=== PATIENT | male | born 1960 | race American Indian/Alaskan Native ===

== ENCOUNTER 2017-05-15 10:06 | Outpatient (CLI) | payer OTHER ==
--- NOTE | 2017-05-15 11:13 | XRay Report ---
XRAY RIGHT KNEE 2 THREE VIEWS: 05/15/17 10:06:00 CLINICAL: Pain. FINDINGS: Mild osteopenia. No fracture or dislocation. The medial and lateral joint spaces are normal. Mild patellofemoral joint arthritis. No joint effusion. Normal soft tissues. IMPRESSION: Osteopenia and mild patellofemoral joint osteoarthritis.
--- NOTE | 2017-05-15 12:39 | XRay Report ---
LEFT SHOULDER: History: Shoulder pain. Routine views demonstrate normal bony and soft tissue structures with normal joint alignment of the shoulder. IMPRESSION: Normal study.
== END 2017-05-15 10:07 | disposition home or self-care (01) ==
LOC: XRAY 10:06
PROVIDERS: ATTEND Internal Medicine
DX: M17.11 Unilateral primary osteoarthritis, right knee (principal); M85.861 Other specified disorders of bone density and structure, right lower leg; M25.512 Pain in left shoulder; R41.3 Other amnesia; F43.10 Post-traumatic stress disorder, unspecified; F32.9 Major depressive disorder, single episode, unspecified; F41.9 Anxiety disorder, unspecified; F20.9 Schizophrenia, unspecified; K46.9 Unspecified abdominal hernia without obstruction or gangrene; H54.7 Unspecified visual loss; X58.XXXA Exposure to other specified factors, initial encounter; Y93.89 Activity, other specified; Y92.89 Other specified places as the place of occurrence of the external cause; Y99.8 Other external cause status

== ENCOUNTER 2017-06-03 10:14 | Outpatient (CLI) | payer OTHER ==
--- NOTE | 2017-06-03 11:25 | XRay Report ---
RIGHT SHOULDER: Pain. Routine views demonstrate normal bony and soft tissue structures with normal joint alignment of the shoulder. IMPRESSION: Normal study.
== END 2017-06-03 10:15 | disposition home or self-care (01) ==
LOC: XRAY 10:14
PROVIDERS: ATTEND Internal Medicine
DX: M25.511 Pain in right shoulder (principal); F41.9 Anxiety disorder, unspecified; F32.89 Other specified depressive episodes; K46.9 Unspecified abdominal hernia without obstruction or gangrene; H54.7 Unspecified visual loss; G89.29 Other chronic pain; M54.9 Dorsalgia, unspecified; M54.2 Cervicalgia; F43.10 Post-traumatic stress disorder, unspecified; X58.XXXA Exposure to other specified factors, initial encounter; Y93.89 Activity, other specified; Y92.89 Other specified places as the place of occurrence of the external cause; Y99.8 Other external cause status